=== PATIENT | female | born 1960 | race Caucasian/White ===

== ENCOUNTER 2017-07-20 20:22 | Emergency (ER) | payer OTHER ==
[2017-07-20 22:12] LABS: BASOPHIL % 0.6 % (0-2); RED CELL DISTRIBUTION WIDTH 13.5 % (11.5-14.5)
[2017-07-20 22:16] LABS: PLATELET COUNT 455 x10^3mcL (130-400)
[2017-07-20 23:05] VITALS: BP 137/72
== END 2017-07-20 23:05 | disposition home or self-care (01) ==
LOC: ED 20:22
PROVIDERS: Emergency Medicine
DX: M65.262 Calcific tendinitis, left lower leg (principal)
CPT/HCPCS: 36415

== ENCOUNTER 2020-02-01 20:31 | Emergency (ER) | payer OTHER ==
[~2020-02-01] VITALS: Ht 157.5 cm; Wt 68.0 kg
[2020-02-01 20:35] VITALS: Ht 157.5 cm; Wt 68.0 kg
[2020-02-01 22:26] VITALS: BP 171/80
== END 2020-02-01 22:45 | disposition home or self-care (01) ==
LOC: ED 20:31
DX: I10 Essential (primary) hypertension (principal); R42 Dizziness and giddiness